=== PATIENT | male | born 1965 | race African-American/Black ===

== ENCOUNTER 2017-02-11 09:41 | Inpatient (IN) | payer SELFPAY ==
[~2017-02-11 09:41] MED LIST: Ondansetron HCl/PF 4 MG/2 ML Vial IVP PRN; Ondansetron ODT 4 MG TAB SL PRN
[2017-02-11] MEDS ORDERED: niCARdipine 20MG In NaCl 20 MG/200 ML BAG ONE (09:58)
[2017-02-11 10:57] LABS: Troponin I 0.032 ng/mL (< 0.028)
[2017-02-11] MEDS ORDERED: niCARdipine HCl 25 MG in Sodium Chloride 0.9% 250 ML 240 ML IVPB SCH (11:30)
[2017-02-11] MEDS ORDERED: Ondansetron ODT 4 MG TAB PO PRN (11:32)
[2017-02-11] MEDS ORDERED: Acetaminophen 325 MG TAB PO PRN (11:32)
[2017-02-11] MEDS ORDERED: Aspirin 325 MG TAB PO SCH (11:45)
[2017-02-11] MEDS ORDERED: Furosemide 40 MG/4 ML VIAL SLOW IVP SCH (11:45)
[2017-02-11] MEDS: Nicotine 21 MG PATCH TD SCH (12:13)
[2017-02-11 13:23] LABS: Hemoglobin A1c 5.9 % (4.0-6.0)
[2017-02-11 13:45] LABS: Troponin I 0.029 ng/mL (< 0.028)
--- NOTE | 2017-02-11 14:46 | HP ---
DATE OF ADMISSION: 02/11/2017 HISTORY OF PRESENT ILLNESS: This is attending history and physical for patient Ann Price. For full history and physical, please see Dr. Conner Lee's dictated H\T\P. I have seen and examined th e patient and portions of the history and physical have been repeated by myself. I have discussed t he case as well as the plan for this patient and I am in agreement with his note. In brief, this patient is a 51-year-old gentleman with a history of poorly controlled hypertension a s well as hyperlipidemia, who presents to the emergency room with 1-month history of worsening dyspn ea on exertion as well as the rest as well as worsening 3-pillow orthopnea as well as paroxysmal noc turnal dyspnea. The patient reports that he noticed dyspnea on exertion and at rest approximately 1 month ago and is continue to get worse. It showed the patient also endorses worsening nocturia thr oughout the night. He also reports that his blood pressures have been running higher than normal ov er the last few months. Today, the patient reported that his symptoms became acutely worse, which l et him to presentation to the outside ER. On presentation, his blood pressures were noted to be gre ater than 200/110. The patient was started on nitro drip as well as given nitro paste and was trans ferred to [facility] for a higher level of care. Upon arrival to the emergen cy room here, the patient's blood pressures continue to be in the low 200-110s. The patient denied any chest pain, vision changes, or headache. However, he does endorse occasional lower extremity ed neetu as well as dry cough. As above, he does mention profound shortness of breath over the last melissa h that is getting worse. After arrival to this institution, the patient was placed on a Cardene dri p with some improvement in his blood pressures. Has significant medical history of hypertension and hyperlipidemia. PHYSICAL EXAMINATION: VITAL SIGNS: At the time of my examination showed a temperature of 97.7, pulse 76, blood pressure 1 84/118, respirations 18, and oxygen saturation 98% on room air. GENERAL: The patient is alert and oriented x4 in no significant distress. He was resting comfortab ly in his bed, though he was sitting up in order to breathe more comfortably. CARDIOVASCULAR: Revealed a regular rate and rhythm; however, the patient was noted to have an S4 ga llop and a displaced PMI. Distal pulses were symmetrical. ABDOMEN: Soft and nontender to palpation. LUNGS:. Lung exam revealed mild rales in the bases bilaterally. EXTREMITIES: Lower extremity exam showed trace to 1+ pitting edema in the lower extremities to mid- hernandez level. SIGNIFICANT LABORATORY DATA: Showed an overall normal CBC and BMP. The patient was noted to have a BNP of 304 and a troponin from the outside ER of 0.032. EKG and chest x-ray were not available at the time of my examination. ASSESSMENT AND PLAN: This 51-year-old gentleman with elevated blood pressures and progressively wor sening dyspnea as well as orthopnea and PND concerning for new onset heart failure. 1. Likely hypertensive emergency -- this patient is presenting with highly elevated blood pressures in association with likely new onset heart failure as well as evidence of heart dysfunction as evid enced by his worsening shortness of breath and nighttime symptoms. The patient has been started on a Cardene drip in the emergency room and I will be continued. The patient will be admitted to the [facility] as long as he is on a Cardene drip and we will titrate the drip to maintain systolic blood pressu re less than 160. Our goal was to decrease the amount in this patient by approximately 10-20% and t hen gradually bring his blood pressure down by resuming all medications and titrating as necessary. We will continue to trend troponins as well as repeat serial EKGs to ensure that there is no eviden ce of ischemia. Repeat chest x-ray at this time as it does appear that the patient has evidence of volume overload in which case, we will give him IV Lasix for treatment of that. Strict I's and O's. Cardiology has been consulted on this patient. We will also obtain an echo to see what sort of ca rdiac dysfunction the patient is currently having in light of his symptoms. 2. Likely new onset heart failure. As above, this is likely secondary to poorly controlled hyperte nsion as well as current hypertensive emergency. The patient admitted to the ICU. We will obtain e chocardiogram as well as administer Lasix as needed for volume overload. Cardiology has been consul juvencio. The patient is on RANDI inhibitor as well as beta carla in the outpatient setting that will ne ed to be continued as well as titrated up as available and the patient will likely need to be starte d on statin as well as aspirin. Await further cardiology recommendations. 3. Tobacco abuse. The patient will be counseled on detrimental effect of tobacco abuse on his skilled nursing cardiac health.
--- NOTE | 2017-02-11 15:07 | CON ---
DATE OF CONSULTATION: 02/11/2017 REASON FOR CONSULTATION: Hypertensive emergency. HISTORY OF PRESENT ILLNESS: Mr. Price is a 51-year-old -[place] gentleman that comes to the hospital for shortness of breath and high blood pressure. He has slowly been getting more short -winded on the last few weeks and his blood pressure was really out of control, which has been tryin g to good control with by his primary care physician. He eventually got to the point where he felt he can breathe anymore, so he came in for evaluation to the [place] ER. He was found to have real ly elevated blood pressure in the 190-200s/100s so he was transferred over to the [facility] in [place] where he had to be placed on BiPAP briefly. He was placed on nicardipine drip and his blood pressure went down, he feels much better now. He denies any chest pain, tightness, pressure. No sh ortness of breath, no lightheadedness, no syncope or presyncope. He has had the high blood pressure for sometime now and is really not well controlled at home, he tells me it checks it all the time a nd it is in the 150s-160s/90s-110s. PAST MEDICAL HISTORY: 1. Hypertension. 2. Hyperlipidemia. 3. Alcohol use. 4. Tobacco use. SOCIAL HISTORY: He smokes 2 packs a day and he drinks alcohol. PAST SURGICAL HISTORY: Hernia repair. OUTPATIENT MEDICATIONS: Include, 1. Lisinopril 20 mg a day. 2. Metoprolol 50 mg twice a day. 3. Lasix 40 mg a day. 4. Albuterol inhaler. 5. Clonidine 0.1 mg p.r.n. for blood pressure above 170. ALLERGIES: No known drug allergies. FAMILY HISTORY: Noncontributory. REVIEW OF SYSTEMS: A 12-point review of systems was done and is all negative unless stated in the h istory of present illness. PHYSICAL EXAMINATION: VITAL SIGNS: Temperature 98.2, pulse 77, respiration rate 20, satting 99% on 2 liters, blood pressu re 131/80. GENERAL: Awake, alert, oriented x3, in no distress. HEENT: Normocephalic, atraumatic. NECK: Supple, no JVD. LUNGS: Clear. CARDIOVASCULAR: S1, S2, no S3 or S4, no murmurs or rubs. ABDOMEN: Soft, positive bowel sounds. EXTREMITIES: No edema. SKIN: Warm and dry. LABORATORY WORK: Reviewed. Hemoglobin A1c is 5.9, troponin is 0.3 and 0.02. TSH was normal. CK-M B was normal. At the outside facility is sodium was 140, potassium is 4.2, chloride of 106, CO2 of 25, gap of 13, glucose of 121, BUN of 17, creatinine was 0.9, calcium of 8.9. Total bilirubin 0.2. Alkaline phosp hatase, AST and ALT are normal. Total protein of 6.4 and albumin of 3.6. Troponin I was 0.03. BNP was 300. White count is 5, hemoglobin of 12, hematocrit of 40, platelets of 175, blood pressure wa s 194/108 and 186/110. EKG showed normal sinus rhythm with LVH and early repolarization abnormalities. ASSESSMENT AND PLAN: 1. Hypertensive emergency: Improved symptoms with reduction in blood pressure. He is doing much b gaurav. We will plan on doing an echocardiogram to assess his LV function and cardiac structures. D epending on this, we will decide on what other therapies we need to institute for better blood press ure control. 2. Mildly elevated troponins: Most likely related to his blood pressure and demand ischemia. Furt her recommendations depending on what his LV function may be. 3. Tobacco use: Counseled on sedation. 4. Alcohol abuse: Counseled on sedation. Thank you for letting us participate in the care of your patient. We will follow.
[2017-02-11] MEDS: Heparin 5,000 UNITS/ML VIAL SC SCH ×2 (15:38→22:04)
--- NOTE | 2017-02-11 16:15 | RAD ---
FRONTAL VIEW CHEST: 02/11/17 INDICATION: Short of breath. FINDINGS: There is enlargement of the cardiac silhouette. Mild prominence of the pulmonary vasculature. No ev idence of consolidation, effusion, or discrete pneumothorax. IMPRESSION: No focal consolidation. POS: ELDON
[2017-02-11 16:31] LABS: Troponin I 0.026 ng/mL (< 0.028)
[2017-02-11] MEDS ORDERED: hydrALAZINE 20 MG/ML VIAL SLOW IVP PRN (18:48)
[2017-02-11] MEDS ORDERED: FLU VACC QS2017-18 36 mo. & older 0.5 ML SYRINGE IM ONE (21:00)
[2017-02-11] MEDS: Atorvastatin Calcium 40 MG TAB PO SCH (22:04)
--- NOTE | 2017-02-11 23:26 | HP-2 ---
RESIDENT: Bon Lee M.D. ATTENDING PHYSICIAN: Ki Jordan M.D. PRIMARY CARE PHYSICIAN: Dr. Rosenbaum in [place]. CODE STATUS: DNI. CHIEF COMPLAINT: Shortness of breath. HISTORY OF PRESENT ILLNESS: A 51-year-old male with past medical history of hypertension and hyperlipidemia, who presents for evaluation of worsening shortness of breath. Shortness of breath initially started 1 month ago associated with dry cough, paroxysmal nocturnal dyspnea, and orthopnea. The patient states the episode is intermittent and worse at night associated with the above symptoms. Patient states that the shortness of breath became significantly worse, causing him to come to the ER for further evaluation today. The patient reportedly uses as needed clonidine, metoprolol, lisinopril , and Lasix for blood pressure control. The patient has been out of Lasix for the past few months, however. The patient without any history of heart failure. The patient states he uses his clonidine approximately two times a month when his blood pressure is greater than 180 systolic. The patient states he normally runs in the 170/100s. Besides his shortness of breath, denies any vision changes, headaches, chest pain, unilateral weakness, or syncope. The patient does state that his legs will swell at times and they are a bit swollen today. Otherwise, no complaints. The patient has never seen a licensed loan officer assistant. The patient is not on a statin medication. ER: The patient received nitro drip on route from [place] [facility]. Reportedly, patient with blood pressure in 200s/100s on the nitro drip when he got here, and he was converted over to a Cardene drip. PAST MEDICAL HISTORY: 1. Hypertension. 2. Hyperlipidemia. 3. Tobacco use. 4. Alcohol use. PAST SURGICAL HISTORY: Inguinal hernia repair as a child. ALLERGIES: No known drug allergies. MEDICATIONS: 1. Clonidine 0.1 mg p.r.n. for systolic blood pressure greater than 180. 2. Metoprolol, unknown dosage b.i.d. 3. Lisinopril 40 mg p.o. daily. 4. Lasix 40 mg p.o. daily. FAMILY HISTORY: 1. Diabetes mellitus. 2. Hypertension. SOCIAL HISTORY: The patient endorses a 2-pack per day smoking history since the age of 13, giving him a 14-roho-ilms smoking history. The patient also drinks 1 pint of whiskey every night. Denies any illicit drug use. REVIEW OF SYSTEMS: GENERAL: Denies any fever or chills. EYES: Denies any vision change or eye pain. ENT: Denies any nasal congestion or sore throat. RESPIRATORY: Endorses dry cough, shortness of breath. See HPI. CARDIOVASCULAR : Denies any chest pain. Endorses edema. GASTROINTESTINAL: Denies any nausea , vomiting, diarrhea, or constipation. GENITOURINARY: Denies any dysuria and endorses nocturia. SKIN: Denies any rashes or lesions. MUSCULOSKELETAL: Denies any pain. NEUROLOGIC: Denies any weakness, syncope. PSYCHIATRIC: Denies anxiety or depression. PHYSICAL EXAMINATION: VITAL SIGNS: Blood pressure 184/118, pulse 76, respiratory rate 18, T-max 97.7 degrees Fahrenheit, pulse ox 98% on room air, weight 117.9 kilograms. GENERAL: A\T\O x3. NAD. Obese, appropriately interactive. HEENT: PERRLA, EOMI. Conjunctivae within normal limits. ENT: Nasal mucosa and oropharynx within normal limits. NECK: Supple, no cervical adenopathy, no thyromegaly, no bruits. CARDIOVASCULAR: Regular rate and rhythm, no murmur. Patient had S4 gallop. 2 + radial pulses bilaterally. RESPIRATORY: Normal respiratory effort, no retractions. Crackles in the base bilaterally. SKIN: Warm, dry, and intact. No cyanosis or lesions. ABDOMEN: Soft and nontender to palpation. Bowel sounds x4. No masses or distention. EXTREMITIES: No clubbing, no cyanosis. The patient has trace edema in the lower extremities bilaterally. MUSCULOSKELETAL: Structure within normal limits. Tone within normal limits. 5 /5 strength, full range of motion. NEUROLOGICAL: No focal deficits. Sensation within normal limits. Cranial nerves II through XII intact bilaterally. PSYCHIATRIC: Appropriate mood and affect. LABORATORY DATA AND IMAGIN. White blood cell count 5.3, hematocrit 40.0, platelets 175. Sodium 140, potassium 4.2, chloride 106, bicarbonate 25, BUN 17.5, creatinine 0.9, glucose 121, albumin 3.6, total protein 6.4, total bilirubin 0.2, calcium 8.9, AST 18, ALT 25, alkaline phosphatase 68. 2. Cardiac enzymes, troponin I is 0.037, BNP 304. 3. EKG showing possibly slight elevations in the ST segments of V1 through V3 with slight up-sloping; however, this is a scanned copy from EKG from [place] and repeat EKG unavailable at time of this dictation. 4. Chest x-ray unavailable at time of dictation, but per ER physician, pulmonary vascular congestion, repeat pending. ASSESSMENT AND PLAN: A 51-year-old male with: 1. Likely hypertensive emergency. - We will admit to the ICU and place on Cardene drip with a goal to drop his mean arterial pressure by 10% to 20% in the first hour; this should be between 126 to 112 with an initial mean arterial pressure of 140 and no lower than 105 in the first 24 hours.- - We will continue to trend troponins. We will place CK-MB orders as well and EKG along with this. - Echocardiogram, encouraged consult for likely new onset of heart failure as well. We will give patient aspirin and place on high intensity statin. - We will repeat chest x-ray and give one time dose of IV Lasix as patient does have crackles in lungs and trace edema in the lower extremities. - We will have strict daily weights as well as strict I's and O's to monitor fluid status. - We will check a.m. fasting lipid panel, TSH, and A1c and hold home blood pressure medications along Cardene drip. 2. Hyperlipidemia. - We will check an a.m. fasting lipid panel. - We will go ahead and place patient on high intensity statin as he is at high risk for CAD disease. 3. Alcohol abuse. - We will place patient on ASE protocol and evaluate for signs of withdrawal. 4. Tobacco abuse. - We will place the patient on Nicoderm patch and give counseling. DISPOSITION AND LENGTH OF HOSPITAL STAY: Greater than 2 midnights. Symptomatic medications will be provided. History and physical exam as well as management were discussed with Dr. Jordan. ALON
--- NOTE | 2017-02-12 00:35 | CON ---
DATE OF CONSULTATION: 02/11/2017 HISTORY OF PRESENT ILLNESS: Ann Price is a 51-year-old gentleman who was admit juvencio to the hospital with uncontrolled blood pressure. He said he quit taking his medications. His doctor has . He is supposed to be taking metoprolol, lisinopril, and Lasix 10 a day. In the ER, his blood pressure was markedly elevated. He has since received Cardene to which his blo od pressure has been decreased. He is seen by Cardiology. He is due for his stress test tomorrow. He has been smoking 2 packs a day. He also been complaining of difficult breathing. He denies a pr ior history of TB, pneumonia or bronchial asthma. 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 PREVIOUS SURGERIES: Hernia operation. REVIEW OF SYSTEMS: Otherwise negative. PHYSICAL EXAMINATION: GENERAL: Appears to be in no distress. VITAL SIGNS: Blood pressure has stabilized 138/95, sats are 96%, pulse 65, respiratory rate 18. CHEST: Decreased breath sounds without any wheezing. CARDIAC: Normal S1, S2. ABDOMEN: Soft, no masses. IMPRESSION: 1. Uncontrolled hypertension, poor noncompliance. 2. Dyspnea, rule out cardiac component. 3. Tobacco abuse; he was told to refrain from smoking. 4. Heavy alcohol abuse, told to refrain from drinking. PLAN: I agree with present care. We will follow while in the ICU.
[2017-02-12 05:21] LABS: #Eosinphils 0.2 thou/uL (0.0-0.7); #Lymphocytes 1.8 thou/uL (1.20-3.40); #Monocytes 0.4 thou/uL (0.11-0.59); #Neutrophils 2.8 thou/uL (1.40-6.50); %Basophils 0.5 % (0.0-1.0); %Eosinophils 3.8 % (0.0-10.0); %Monocytes 7.2 % (0.0-10.0); Hematocrit 46.4 % (42.0-52.0); Mean Platelet Volume 8.9 fL (7.4-10.4); White Blood Cell (WBC) Count 5.3 thou/uL (4.8-10.8)
[2017-02-12 05:42] LABS: Anion Gap 9 mmol/L (10-20); BUN (Urea Nitrogen) 17 mg/dL (8.4-25.7); Calc. Creatinine Clearance 131 mL/min (70-130); Calcium 9.8 mg/dL (7.8-10.44); Carbon Dioxide 29 mmol/L (22-29); Chloride 99 mmol/L (98-107); Cholesterol 314 mg/dl (< 200 Desired); Estimated GFR-MDRD Greater than 90; LDL Cholesterol, Calculated 214 mg/dL
--- NOTE | 2017-02-12 07:24 | PDOC.FM ---
- Subjective Subjective: Patient states he is feeling better. Breathing easy. He is thankful for his care. He denies SOB, chest pain, headache. Patient not taking a statin at home, never has. Notes that he takes daily lasix 10 mg but cramps a lot in his legs. Not taking potassium daily. - Objective Vital Signs & Weight: Vital Signs (12 hours) Temp Pulse Resp Pulse Ox 02/12/17 04:00 98.2 F 02/12/17 00:00 98.1 F 02/11/17 20:00 98.1 F 75 16 96 Most Recent Monitor Data Heart Rate from ECG 66 NIBP 169/112 NIBP BP-Mean 127 Respiration from ECG 15 SpO2 95 I&O: 02/11/17 02/12/17 02/13/17 06:59 06:59 06:59 Intake Total 1534 Output Total 3800 Balance -2266 Result Diagrams: 02/12/17 04:22 02/12/17 04:22 <Samantha Zapata - Last Filed: 02/12/17 08:00> - Objective Vital Signs & Weight: Vital Signs (12 hours) Temp Pulse Resp BP Pulse Ox 02/12/17 08:34 75 153/86 H 02/12/17 08:33 153/86 H 02/12/17 08:00 97.8 F 75 17 96 02/12/17 07:58 96 02/12/17 04:00 98.2 F 02/12/17 00:00 98.1 F Weight Weight 221 lb 12.56 oz Most Recent Monitor Data Heart Rate from ECG 72 NIBP 164/120 NIBP BP-Mean 136 Respiration from ECG 14 SpO2 89 I&O: 02/11/17 02/12/17 02/13/17 06:59 06:59 06:59 Intake Total 1534 Output Total 3800 250 Balance -2266 -250 Result Diagrams: 02/12/17 04:22 02/12/17 04:22 <Abdelrahman Saha - Last Filed: 02/12/17 10:27> Phys Exam - Physical Examination Constitutional: NAD Respiratory: no wheezing, no rales, no rhonchi, clear to auscultation bilateral Cardiovascular: RRR, no significant murmur Gastrointestinal: soft, non-tender, positive bowel sounds Musculoskeletal: no edema Neurological: non-focal, normal sensation, moves all 4 limbs Psychiatric: normal affect, A&O x 3 <Samantha Zapata - Last Filed: 02/12/17 08:00> Dx/Plan (1) Hypertensive emergency Code(s): I16.1 - HYPERTENSIVE EMERGENCY Status: Resolved (2) Hyperlipidemia Code(s): E78.5 - HYPERLIPIDEMIA, UNSPECIFIED Status: Acute (3) Tobacco abuse Code(s): Z72.0 - TOBACCO USE Status: Acute (4) Alcohol abuse Code(s): F10.10 - ALCOHOL ABUSE, UNCOMPLICATED Status: Acute - Plan Plan: 1. hypertensive emergency with suspected new onset heart failure- Patient with admission BPs of 181/108. Originally placed on cardene drip and stopped at 1848. He was at a map of 87 this morning. Overnight MAPs in low 100's. Plan to give lisinopril, amlodipine. After stress will get metoprolol. Awaiting results of ECHO and planning for nuclear medicine stress test this AM. Likely can transition to the floor this afternoon and cont to monitor BPs 24 hours. 2. Hyperlipidemia started on high intensity statin and educated on SEs. Follow up with PCP. 3. tobacco abuse- cessation counseling. nicoderm given. 4. alcohol abuse- counseling provided to stop use, ASA protocol. Has been doing ok. <Samantha Zapata - Last Filed: 02/12/17 08:00> Attending Addendum - Attending Addendum I personally evaluated the patient and discussed the management with Dr. Zapata I agree with the History, Examination, Assessment and Plan documented above with any addition or exceptions noted below. Patient admitted for hypertensive urgency and CHF. He has been non-compliant with meds at home, but I doubt that his BP has been controlled. He does have LVH on EKG. He was not on HCTZ or a calcium channel carla. He is a heavy smoker and would be at risk for renal vascular disease. We are starting Amlodipine and HCTZ to go along with Metoprolol and Lisinopril. He needs the last two for CHF. He can move to the floor today <Abdelrahman Saha - Last Filed: 02/12/17 10:27>
[2017-02-12] MEDS: Aspirin 81 mg Enteric Coated Tablet PO SCH (08:32)
[2017-02-12] MEDS: Heparin 5,000 UNITS/ML VIAL SC SCH ×3 (08:33→22:02)
[2017-02-12] MEDS: Lisinopril 20 MG TAB PO SCH (08:33)
[2017-02-12] MEDS: Amlodipine 10 MG TAB PO SCH (08:34)
[2017-02-12] MEDS ORDERED: Furosemide 20 MG TAB PO SCH (09:00)
[2017-02-12] MEDS ORDERED: Lorazepam 0.5 MG TAB PO PRN (11:03)
--- NOTE | 2017-02-12 11:53 | PDOC.CTH ---
Cardiology Progress Note - Subjective He is doing well. He denies any chest pain, tightness, pressure. - Objective Vital Signs Temp Pulse Resp BP Pulse Ox 02/12/17 08:34 75 153/86 H 02/12/17 08:33 153/86 H 02/12/17 08:00 97.8 F 75 17 96 02/12/17 07:58 96 02/12/17 04:00 98.2 F 02/12/17 00:00 98.1 F Weight 221 lb 12.56 oz 02/11/17 02/12/17 02/13/17 06:59 06:59 06:59 Intake Total 1534 Output Total 3800 250 Balance -2266 -250 - Physical Examination General/Neuro: alert & oriented x3, NAD Neck: no JVD present Lungs: unlabored respirations Heart: RRR Abdomen: NT/ND Extremities: other: (no edema) - Telemetry Telemetry Rhythm: NSR - Labs Result Diagrams: 02/12/17 04:22 02/12/17 04:22 Troponin/CKMB CK-MB (CK-2) 3.3 ng/mL (0-6.6) 02/11/17 15:53 Troponin I 0.026 ng/mL (< 0.028) 02/11/17 15:53 - Assessment/Plan 1. Hypertensive emergency 2. Indeterminate troponins. 3. Alcohol abuse 4. Tobacco abuse. PLAN: - Lexiscan stress today. - Will add coreg to regimen today. - BP better controlled but he will need a PRN hydralazine to take home once discharged. - May transfer to telemetry.
--- NOTE | 2017-02-12 12:52 | PRG ---
DATE OF SERVICE: 02/12/2017 SUBJECTIVE: This morning, awake, alert, responsive. Denies pain or shortness of breath. OBJECTIVE: VITAL SIGNS: Blood pressure is 153/86, pulse 75, respiratory rate 18. CHEST: Decreased breath sounds, no wheezing. CARDIAC: Normal S1, S2. No gallops. ABDOMEN: Soft, no masses. LABORATORY DATA: White count 5000, H\T\H 14 and 46, platelet count is normal. Sodium 133. ASSESSMENT: Hypertensive urgency with poor compliance to medication and elevated troponin. He is scheduled for a stress test today. Disposition as per Cardiology. We will follow while in e ICU.
[2017-02-12] MEDS: Nicotine 21 MG PATCH TD SCH (14:14)
--- NOTE | 2017-02-12 14:48 | NM ---
NUCLEAR MEDICINE CARDIAC STRESS TEST WITH EJECTION FRACTION: HISTORY: Shortness of breath, hypertension, dyslipidemia, smoker. COMPARISON: None. TECHNIQUE: Nuclear medicine cardiac stress test was performed after the intravenous administration of 28.5 and 10.4 mCi Technetium 99m sestamibi for stress and rest, respectively. Exam was performed using a LexiScan protocol. FINDINGS: Mild inferior wall scarring. Ejection fraction is abnormal at 29%. Global hypokinesis. IMPRESSION: Small volume inferior wall scar with global hypokinesis and abnormally low ejection fraction of 29%. POS: LIANNE
[2017-02-12] MEDS ORDERED: Regadenoson 0.4 MG/5 ML SYRINGE ONE (15:53)
[2017-02-12] MEDS: Carvedilol 6.25 MG TAB PO SCH (16:42)
[2017-02-12] MEDS: Atorvastatin Calcium 40 MG TAB PO SCH (22:01)
[2017-02-13 05:22] LABS: Anion Gap 13 mmol/L (10-20); BUN (Urea Nitrogen) 16 mg/dL (8.4-25.7); Calc. Creatinine Clearance 124 mL/min (70-130); Calcium 9.2 mg/dL (7.8-10.44); Carbon Dioxide 25 mmol/L (22-29); Chloride 101 mmol/L (98-107); Estimated GFR-MDRD Greater than 90
--- NOTE | 2017-02-13 07:34 | PDOC.FM ---
- Subjective Subjective: Patient feels a little "short winded" this morning. He last drank coffee around 4-5 AM. Denies headaches, chest pain, weakness, numbness. Does c/o nosebleeds when BP is high. - Objective MAR Reviewed: Yes Vital Signs & Weight: Vital Signs (12 hours) Temp Pulse Resp BP Pulse Ox 02/13/17 04:33 98.0 F 80 18 170/93 H 95 02/13/17 03:51 97 02/13/17 00:17 98.7 F 66 18 159/81 H 97 02/12/17 21:57 98.3 F 76 18 174/96 H 93 L 02/12/17 20:11 98.3 F 76 18 93 L Weight Weight 100.6 kg Most Recent Monitor Data Heart Rate from ECG 72 NIBP 164/120 NIBP BP-Mean 136 Respiration from ECG 14 SpO2 89 I&O: 02/12/17 02/13/17 02/14/17 06:59 06:59 06:59 Intake Total 1534 480 Output Total 3800 1750 Balance -2265 -1763 Result Diagrams: 02/12/17 04:22 02/13/17 04:23 EKG Reviewed by me: Yes <Samantha Zapata - Last Filed: 02/13/17 08:29> - Objective Vital Signs & Weight: Vital Signs (12 hours) Temp Pulse Resp BP BP Pulse Ox 02/13/17 07:40 97.7 F 85 18 187/114 H 96 02/13/17 04:33 98.0 F 80 18 170/93 H 95 02/13/17 03:51 97 02/13/17 00:17 98.7 F 66 18 159/81 H 97 02/12/17 21:57 98.3 F 76 18 174/96 H 93 L Weight Weight 221 lb 12.56 oz Most Recent Monitor Data Heart Rate from ECG 72 NIBP 164/120 NIBP BP-Mean 136 Respiration from ECG 14 SpO2 89 I&O: 02/12/17 02/13/17 02/14/17 06:59 06:59 06:59 Intake Total 1534 480 Output Total 3800 1750 Balance -2266 -1270 Result Diagrams: 02/12/17 04:22 02/13/17 04:23 <Abdelrahman Saha - Last Filed: 02/13/17 09:59> Phys Exam - Physical Examination Constitutional: NAD HEENT: PERRLA Respiratory: no wheezing, no rales, no rhonchi, clear to auscultation bilateral Cardiovascular: RRR, no significant murmur Gastrointestinal: soft, non-tender Musculoskeletal: no edema Neurological: non-focal, normal sensation, moves all 4 limbs Psychiatric: normal affect <Samantha Zapata - Last Filed: 02/13/17 08:29> Dx/Plan (1) Hypertensive emergency Code(s): I16.1 - HYPERTENSIVE EMERGENCY Status: Resolved (2) Hyperlipidemia Code(s): E78.5 - HYPERLIPIDEMIA, UNSPECIFIED Status: Acute (3) Tobacco abuse Code(s): Z72.0 - TOBACCO USE Status: Acute (4) Alcohol abuse Code(s): F10.10 - ALCOHOL ABUSE, UNCOMPLICATED Status: Acute - Plan Plan: 1. hypertensive emergency- BPs not well controlled. Cont to monitor. HCTZ not given yesterday, start BID today. Now on 4 agents. Cardiology following. 2. Congestive heart failure with reduced ejection fraction- Suspect possible cardiac cath today. Questionable candidate for lifevest. consult placed for heart failure clinic. 3. hyperlipidemia- High intensity statin initiated this hospitalization. 4. Tobacco abuse- extensive counseling provided. He wants to quit. Thinking about vaping or patches. Advised to follow up outpatient with PCP. 5. alcohol abuse- cessation counseling provided. Patient states there are times he would not take his BP meds at night bc he was drinking. 6. medication noncompliance Normal Hgb A1C. <Samantha Zapata - Last Filed: 02/13/17 08:29> Attending Addendum - Attending Addendum I personally evaluated the patient and discussed the management with Dr. Zapata I agree with the History, Examination, Assessment and Plan documented above with any addition or exceptions noted below. Mr. Price had a nuclear stress test yesterday which showed a 29% EF and wall motion abnormalities. Cardiology has changed him to carvedilol. His BP is now much better controlled. We are waiting to hear whether cards wants to cath him or not. He will need to stop smoking control his lipids and have close followup for his BP and heart. <Abdelrahman Saha - Last Filed: 02/13/17 09:59>
[2017-02-13] MEDS: Amlodipine 10 MG TAB PO SCH (08:21)
[2017-02-13] MEDS: Aspirin 81 mg Enteric Coated Tablet PO SCH (08:21)
[2017-02-13] MEDS: Hydrochlorothiazide 25 MG TAB PO SCH (08:21)
[2017-02-13] MEDS: Carvedilol 6.25 MG TAB PO SCH ×2 (08:21→15:57)
[2017-02-13] MEDS: Lisinopril 20 MG TAB PO SCH (08:21)
[2017-02-13] MEDS: Heparin 5,000 UNITS/ML VIAL SC SCH ×3 (08:26→20:55)
[2017-02-13] MEDS: Nicotine 21 MG PATCH TD SCH (12:57)
--- NOTE | 2017-02-13 18:03 | PDOC.CTH ---
Cardiology Progress Note - Subjective He is doing better. No chest pain. - Objective Vital Signs Temp Pulse Resp BP BP Pulse Ox 02/13/17 15:25 97.9 F 79 18 150/92 H 95 02/13/17 08:00 97.7 F 85 18 96 02/13/17 07:40 97.7 F 85 18 187/114 H 96 Weight 221 lb 12.56 oz 02/12/17 02/13/17 02/14/17 06:59 06:59 06:59 Intake Total 1534 480 Output Total 3800 1750 Balance -2266 -1270 - Physical Examination General/Neuro: alert & oriented x3, NAD Neck: no JVD present Lungs: CTA, unlabored respirations Heart: RRR Abdomen: NT/ND Extremities: other: (no edema) - Telemetry Telemetry Rhythm: NSR - Labs Result Diagrams: 02/12/17 04:22 02/13/17 04:23 Troponin/CKMB CK-MB (CK-2) 3.3 ng/mL (0-6.6) 02/11/17 15:53 Troponin I 0.026 ng/mL (< 0.028) 02/11/17 15:53 - Assessment/Plan 1. Hypertensive emergency 2. Indeterminate troponins. 3. Alcohol abuse 4. Tobacco abuse. 5. Abnormal MPI 6. Systolic dysfunction. PLAN: - EF at 25% on MPI. - Continue BB and ACEI. - Will plan on further risk stratification with a C. We spoke about risks and benefits of procedure and he agrees to proceed. - Will need lifevest before discharge if LV function remains reduced on LV gram.
[2017-02-13] MEDS ORDERED: Communication Order-Pharmacy FS SCH (18:15)
[2017-02-13] MEDS: hydrALAZINE 25 MG TAB PO SCH (20:55)
[2017-02-13] MEDS: Atorvastatin Calcium 40 MG TAB PO SCH (20:56)
--- NOTE | 2017-02-14 06:05 | PDOC.FM ---
- Subjective Subjective: Patient doing well with no complaints this morning. He denies chest pain and shortness of breath. No adverse events overnight. - Objective MAR Reviewed: Yes Vital Signs & Weight: Vital Signs (12 hours) Temp Pulse Resp BP BP BP Pulse Ox 02/14/17 04:00 97.6 F 78 18 160/90 H 99 02/14/17 00:00 98.2 F 72 18 157/83 H 94 L 02/13/17 20:55 70 172/94 H 02/13/17 20:03 97.6 F 82 18 150/92 H 97 02/13/17 19:45 98.2 F 72 18 160/87 H 94 L Weight Weight 100.6 kg Most Recent Monitor Data Heart Rate from ECG 72 NIBP 164/120 NIBP BP-Mean 136 Respiration from ECG 14 SpO2 89 I&O: 02/12/17 02/13/17 02/14/17 06:59 06:59 06:59 Intake Total 1534 480 720 Output Total 3800 1750 2000 Balance -7051 -7140 -1978 Result Diagrams: 02/12/17 04:22 02/14/17 05:33 <Carmen Alanis - Last Filed: 02/14/17 06:44> - Objective Vital Signs & Weight: Vital Signs (12 hours) Temp Pulse Resp BP BP Pulse Ox 02/14/17 07:33 97.5 F L 65 18 137/99 H 94 L 02/14/17 06:16 78 160/90 H 02/14/17 06:15 78 160/90 H 02/14/17 04:00 97.6 F 78 18 160/90 H 99 02/14/17 00:00 98.2 F 72 18 157/83 H 94 L Weight Weight 100.6 kg Most Recent Monitor Data Heart Rate from ECG 72 NIBP 164/120 NIBP BP-Mean 136 Respiration from ECG 14 SpO2 89 I&O: 02/13/17 02/14/17 02/15/17 06:59 06:59 06:59 Intake Total 480 1180 Output Total 1750 2700 Balance -5900 -3554 Result Diagrams: 02/12/17 04:22 02/14/17 05:33 <Steffen Chilel - Last Filed: 02/14/17 10:47> Phys Exam - Physical Examination Constitutional: NAD Respiratory: clear to auscultation bilateral Cardiovascular: RRR, no significant murmur, no rub Gastrointestinal: soft, no distention Musculoskeletal: no edema Neurological: non-focal Psychiatric: normal affect, A&O x 3 Skin: normal turgor (dry) <Carmen Alanis - Last Filed: 02/14/17 06:44> Dx/Plan (1) Coronary artery disease Code(s): I25.10 - ATHSCL HEART DISEASE OF [place] CORONARY ARTERY W/O ANG PCTRS Status: Acute (2) Systolic CHF Code(s): I50.20 - UNSPECIFIED SYSTOLIC (CONGESTIVE) HEART FAILURE Status: Chronic Plan: EF 29%. (3) Hypertensive emergency Code(s): I16.1 - HYPERTENSIVE EMERGENCY Status: Resolved (4) Hyperlipidemia Code(s): E78.5 - HYPERLIPIDEMIA, UNSPECIFIED Status: Chronic (5) Tobacco abuse Code(s): Z72.0 - TOBACCO USE Status: Chronic (6) Alcohol abuse Code(s): F10.10 - ALCOHOL ABUSE, UNCOMPLICATED Status: Acute - Plan Plan: 1. Coronary Artery Disease - NM stress showed small volume inferior wall scar with global hypokinesis and EF of 29%. - Cards plans to cath pt today. - Continue Coreg, ASA, Atorvastatin. 2. Heart failure with reduced EF. - HF clinic has been consulted, and pt will need to follow-up with them outpatient. - Continue fluid restriction, daily weights, strict I/O - Continue Coreg, lisinopril - Life vest may be needed prior to dc if LV function remains reduced on LV gram , per cards 3. Hypertension - Hypertensive emergency has resolved. - BPs have been improving. - Continue coreg, amlodipine, HCTZ, and Lisinopril. 4. Tobacco abuse - education has been provided - Nicoderm TD. <Carmen Alanis - Last Filed: 02/14/17 06:44> Attending Addendum - Attending Addendum I personally evaluated the patient and discussed the management with Dr. Alanis. I agree with the History, Examination, Assessment and Plan documented above with any addition or exceptions noted below. <Steffen Chilel - Last Filed: 02/14/17 10:47>
[2017-02-14] MEDS: Amlodipine 10 MG TAB PO SCH (06:15)
[2017-02-14] MEDS: Carvedilol 6.25 MG TAB PO SCH ×2 (06:15→15:51)
[2017-02-14] MEDS: hydrALAZINE 25 MG TAB PO SCH ×3 (06:16→22:04)
[2017-02-14] MEDS: Aspirin 81 mg Enteric Coated Tablet PO SCH (06:16)
[2017-02-14] MEDS: Lisinopril 20 MG TAB PO SCH (06:16)
[2017-02-14 06:33] LABS: Anion Gap 8 mmol/L (10-20); BUN (Urea Nitrogen) 19 mg/dL (8.4-25.7); Calc. Creatinine Clearance 117 mL/min (70-130); Calcium 9.5 mg/dL (7.8-10.44); Carbon Dioxide 32 mmol/L (22-29); Chloride 102 mmol/L (98-107); Estimated GFR-MDRD 90
[2017-02-14] MEDS ORDERED: Sodium Chloride 0.9% 1,000 ML IV SCH ×2 (07:00→13:30)
[2017-02-14] MEDS: Hydrochlorothiazide 25 MG TAB PO SCH (08:35)
[2017-02-14] MEDS: Heparin 5,000 UNITS/ML VIAL SC SCH ×3 (08:35→22:06)
[2017-02-14] MEDS: Nicotine 21 MG PATCH TD SCH (11:52)
[2017-02-14] MEDS ORDERED: Nitroglycerin 100MG/250ML BOT 250 ML ONE (12:18)
[2017-02-14] MEDS ORDERED: Heparin 10,000 UNITS/1 ML VIAL ONE (12:18)
[2017-02-14] MEDS ORDERED: Fentanyl 100 MCG/2 ML VIAL ONE (12:52)
[2017-02-14] MEDS ORDERED: Midazolam HCl 2 mg/2 ml Vial ONE (12:52)
[2017-02-14] MEDS ORDERED: Clopidogrel Bisulfate 300 MG TAB ONE (13:25)
[2017-02-14] MEDS ORDERED: Nitroglycerin 0.4 MG TAB 1 EACH SL PRN (13:29)
[2017-02-14] MEDS ORDERED: Morphine 2 MG/ML SYRINGE SLOW IVP PRN (13:29)
[2017-02-14 14:58] VITALS: BMI 37.0
--- NOTE | 2017-02-14 16:09 | EKG ---
Test Reason : TIMED Blood Pressure : / mmHG Vent. Rate : 076 BPM Atrial Rate : 076 BPM P-R Int : 136 ms QRS Dur : 100 ms QT Int : 426 ms P-R-T Axes : 041 -24 170 degrees QTc Int : 479 ms Normal sinus rhythm Possible Left atrial enlargement Moderate voltage criteria for LVH, may be normal variant Marked ST abnormality, possible anterior subendocardial injury Abnormal ECG Confirmed by PACO ALEJO ([id number]) on 02/14/2017 4:09:41 PM Referred By: ROSA M Confirmed By:PACO ALEJO
--- NOTE | 2017-02-14 16:58 | EKG ---
Test Reason : POST STENT Blood Pressure : / mmHG Vent. Rate : 071 BPM Atrial Rate : 071 BPM P-R Int : 146 ms QRS Dur : 098 ms QT Int : 418 ms P-R-T Axes : 034 -23 174 degrees QTc Int : 454 ms Normal sinus rhythm Possible Left atrial enlargement Left ventricular hypertrophy with repolarization abnormality cannot R/O ischemia or evolving recent [place] Abnormal ECG When compared with ECG of 11-FEB-2017 14:11, (Unconfirmed) No significant change was found Confirmed by DR. Jessica SAINI ([id number]) on 02/14/2017 4:58:37 PM Referred By: DALTON Confirmed By:DR. Jessica SAINI
[2017-02-14] MEDS: Atorvastatin Calcium 40 MG TAB PO SCH (22:04)
[2017-02-15 06:31] LABS: #Basophils 0.1 thou/uL (0.0-0.2); #Eosinphils 0.1 thou/uL (0.0-0.7); #Lymphocytes 1.1 thou/uL (1.20-3.40); #Monocytes 0.4 thou/uL (0.11-0.59); #Neutrophils 2.2 thou/uL (1.40-6.50); %Basophils 1.4 % (0.0-1.0); %Eosinophils 3.1 % (0.0-10.0); %Lymphocytes 28.1 % (21.0-51.0); %Monocytes 9.5 % (0.0-10.0); Hematocrit 41.5 % (42.0-52.0); Mean Platelet Volume 8.8 fL (7.4-10.4); Red Blood Cell (RBC) Count 4.42 mill/uL (4.70-6.10); White Blood Cell (WBC) Count 3.8 thou/uL (4.8-10.8)
--- NOTE | 2017-02-15 06:34 | PDOC.FM ---
- Subjective Subjective: Patient doing well this morning with no complaints of pain. He denies chest pain , shortness of breath, and peripheral edema. - Objective MAR Reviewed: Yes Vital Signs & Weight: Vital Signs (12 hours) Temp Pulse Resp BP BP Pulse Ox 02/15/17 04:00 98.1 F 71 20 144/91 H 93 L 02/14/17 23:56 77 154/86 H 02/14/17 22:04 80 165/93 H 02/14/17 20:00 98.0 F 77 20 02/14/17 19:40 98.0 F 80 20 167/87 H Weight Weight 98.838 kg Most Recent Monitor Data Heart Rate from ECG 72 NIBP 164/120 NIBP BP-Mean 136 Respiration from ECG 14 SpO2 89 I&O: 02/13/17 02/14/17 02/15/17 06:59 06:59 06:59 Intake Total 480 1180 1540 Output Total 1750 2700 3860 Balance -1270 -1520 -2320 Result Diagrams: 02/15/17 05:55 02/15/17 05:55 <Carmen Alanis C - Last Filed: 02/15/17 07:54> - Objective Vital Signs & Weight: Vital Signs (12 hours) Temp Pulse Pulse Pulse Resp BP BP 02/15/17 11:43 69 72 143/86 H 161/87 H 02/15/17 08:15 98.0 F 71 14 02/15/17 08:10 71 02/15/17 04:00 98.1 F 71 20 BP BP Pulse Ox Pulse Ox Pulse Ox 02/15/17 11:43 95 99 02/15/17 08:15 164/92 H 02/15/17 08:10 02/15/17 04:00 144/91 H 93 L Weight Weight 98.838 kg Most Recent Monitor Data Heart Rate from ECG 72 NIBP 164/120 NIBP BP-Mean 136 Respiration from ECG 14 SpO2 89 I&O: 02/14/17 02/15/17 02/16/17 06:59 06:59 06:59 Intake Total 1180 1540 Output Total 2700 3860 Balance -1520 -2320 Result Diagrams: 02/15/17 05:55 02/15/17 05:55 <Steffen Chilel - Last Filed: 02/15/17 12:22> Phys Exam - Physical Examination Constitutional: NAD Respiratory: clear to auscultation bilateral Cardiovascular: RRR Musculoskeletal: no edema Neurological: moves all 4 limbs Psychiatric: normal affect, A&O x 3 Skin: no rash Deviation from normal: right radial cath site well healed; no swelling or bruising. <Carmen Alanis - Last Filed: 02/15/17 07:54> Dx/Plan (1) Coronary artery disease Code(s): I25.10 - ATHSCL HEART DISEASE OF [place] CORONARY ARTERY W/O ANG PCTRS Status: Acute Plan: s/p LHC and stent placement x 2 plavix added to patient's regimen. Continue ASA, Carvedilol, and atorvastatin. (2) Systolic CHF Code(s): I50.20 - UNSPECIFIED SYSTOLIC (CONGESTIVE) HEART FAILURE Status: Resolved Plan: EF shows improvement on left ventriculogram 50%. continue beta carla, lisinopril, for BP. (3) Hyperlipidemia Code(s): E78.5 - HYPERLIPIDEMIA, UNSPECIFIED Status: Chronic (4) Tobacco abuse Code(s): Z72.0 - TOBACCO USE Status: Chronic Plan: Continue TD nicotine. Counseled. (5) Alcohol abuse Code(s): F10.10 - ALCOHOL ABUSE, UNCOMPLICATED Status: Acute Plan: Extensive education provided. (6) Hypertensive emergency Code(s): I16.1 - HYPERTENSIVE EMERGENCY Status: Resolved - Plan Plan: Disposition: likely d/c today. <Carmen Alanis - Last Filed: 02/15/17 07:54> Attending Addendum - Attending Addendum I personally evaluated the patient and discussed the management with Dr. Alanis. I agree with the History, Examination, Assessment and Plan documented above with any addition or exceptions noted below. <Steffen Chilel - Last Filed: 02/15/17 12:22>
[2017-02-15 06:45] LABS: ALT (SGPT) 34 U/L (8-55); AST (SGOT) 23 U/L (5-34); Alkaline Phosphatase 69 U/L (40-150); Anion Gap 10 mmol/L (10-20); BUN (Urea Nitrogen) 14 mg/dL (8.4-25.7); Bilirubin, Total 0.4 mg/dL (0.2-1.2); Calc. Creatinine Clearance 137 mL/min (70-130); Carbon Dioxide 26 mmol/L (22-29); Chloride 103 mmol/L (98-107); Estimated GFR-MDRD Greater than 90; Globulin 2.9 g/dL (2.4-3.5); Protein, Total 6.6 g/dL (6.0-8.3)
[2017-02-15] MEDS: Aspirin 81 mg Enteric Coated Tablet PO SCH (08:10)
[2017-02-15] MEDS: Heparin 5,000 UNITS/ML VIAL SC SCH (08:10)
[2017-02-15] MEDS: Carvedilol 6.25 MG TAB PO SCH (08:10)
[2017-02-15] MEDS: Hydrochlorothiazide 25 MG TAB PO SCH (08:10)
[2017-02-15] MEDS: Amlodipine 10 MG TAB PO SCH (08:10)
[2017-02-15] MEDS: hydrALAZINE 25 MG TAB PO SCH (08:10)
[2017-02-15] MEDS: Lisinopril 20 MG TAB PO SCH (08:11)
[2017-02-15] MEDS ORDERED: Clopidogrel Bisulfate 75 MG TAB PO SCH (09:00)
[2017-02-15] MEDS: Nicotine 21 MG PATCH TD SCH (11:26)
--- NOTE | 2017-02-15 12:11 | EKG ---
Test Reason : Blood Pressure : / mmHG Vent. Rate : 070 BPM Atrial Rate : 070 BPM P-R Int : 144 ms QRS Dur : 098 ms QT Int : 422 ms P-R-T Axes : 043 -25 180 degrees QTc Int : 455 ms Normal sinus rhythm Possible Left atrial enlargement Left ventricular hypertrophy with repolarization abnormality upsloping anterior st segments probably part of LVH pattern cannot R/O acute ischemia Abnormal ECG When compared with ECG of 14-FEB-2017 13:49, No significant change was found Confirmed by DR. Jessica SAINI ([id number]) on 02/15/2017 12:10:52 PM Referred By: DALTON Confirmed By:DR. Jessica SAINI
[2017-02-15 12:50] VITALS: BP 144/86; TEMP 97.7
--- NOTE | 2017-02-16 11:54 | DIS-2 ---
DATE OF ADMISSION: 02/11/2017 DATE OF DISCHARGE: 02/15/2017 RESIDENT: Carmen Alanis M.D. - PGY2 ADMITTING ATTENDING: Ki Jordan M.D. DISCHARGE ATTENDING: Steffen Chilel M.D. CONSULTATIONS: 1. Jarrod Chaudhry M.D. 2. Refugio Rush M.D. PROCEDURES: 1. Chest x-ray that showed no evidence of acute cardiopulmonary process. 2. Nuclear medicine stress test that showed small volume inferior wall scar with global hypokinesis with ejection fraction of 29%. 3. Left heart catheterization with PTCA and bare metal stent placement that showed severe left circumflex disease, mild LAD disease, small nondominant right coronary artery. 4. Successful PCI to left circumflex with bare metal stent, left ventricular function of 50%. PRIMARY DIAGNOSIS: 1. Hypertensive emergency, resolved. 2. Coronary artery disease. 3. Heart failure with reduced ejection fraction, resolved. SECONDARY DIAGNOSES: 1. Hyperlipidemia. 2. Tobacco abuse. 3. Alcohol abuse. 4. Hypertension. 5. Demand Ischemia DISCHARGE MEDICATIONS: 1. Amlodipine 10 mg p.o. daily. 2. Aspirin 81 mg p.o. daily. 3. Atorvastatin 80 mg p.o. at bedtime. 4. Carvedilol 6.25 mg p.o. b.i.d. 5. Plavix 75 mg p.o. daily. 6. Hydrochlorothiazide 25 mg p.o. daily. 7. Nicoderm CQ 21 mg transdermally q.24 hours. 8. Lisinopril 40 mg p.o. daily. DISCONTINUED MEDICATIONS: Lasix 10 mg p.o. HISTORY OF PRESENT ILLNESS AND HOSPITAL COURSE: The patient is a 51-year-old male who came in with a chief complaint of shortness of breath and was found to have severely elevated blood pressures in the 200s/100s range and was placed on a Cardene drip. The patient was admitted to the ICU for treatment of hypertensive emergency. Cardiology was consulted and a stress test was performed with the above findings. This was followed up with a left heart catheterization with the above findings. Successful PTCA was performed with bare metal stent placement. Cardiology recommended dual antiplatelet therapy for at least 1 month and ideally up for a year. Initially there was discussion regarding LifeVest given the patient's earlier ejection fraction on stress test of 29%. However, left ventriculogram showed an EF of 50% and therefore LifeVest was no longer needed. Standard therapy for coronary artery disease was initiated including beta carla and high dose statin therapy. Prior to discharge, patient was completely asymptomatic and blood pressures were stable with the addition of multiple oral antihypertensive agents. Strict daily compliance was encouraged and the patient expressed understanding. Tobacco cessation and alcohol cessation were also will strongly encouraged as well. The patient was discharged in stable condition. Laboratory values of note, the patient's cardiac enzymes were indeterminately elevated related to demand ischemia were down trending. Also of note, the patient's fasting lipid panel revealed an LDL of 214 and therefore high dose statin therapy was initiated and for coronary artery disease as well. DISPOSITION: Stable. DISCHARGE INSTRUCTIONS: 1. Location: Home. 2. Diet: Heart healthy. 3. Activity: Ad yunior. 4. Followup: Júnior Velazco on . Jarrod Chaudhry M.D. on 2016. ALON
== END 2017-02-15 12:55 | disposition home or self-care (01) | DRG 248 ==
LOC: ERS 09:41 → CCU 10:21 → 2NO 02-12 12:26
PROVIDERS: ADMIT Internal Medicine; ATTEND Internal Medicine
PROC: 4A023N7 Measurement of Cardiac Sampling and Pressure, Left Heart, Percutaneous Approach (ICD-10-PCS; principal; 2017-02-14)
PROC: 02703DZ Dilation of Coronary Artery, One Artery with Intraluminal Device, Percutaneous Approach (ICD-10-PCS; 2017-02-14)
PROC: B2111ZZ Fluoroscopy of Multiple Coronary Arteries using Low Osmolar Contrast (ICD-10-PCS; 2017-02-14)
PROC: B2151ZZ Fluoroscopy of Left Heart using Low Osmolar Contrast (ICD-10-PCS; 2017-02-14)
DX: I16.1 Hypertensive emergency (principal); I50.21 Acute systolic (congestive) heart failure; E78.5 Hyperlipidemia, unspecified; F17.210 Nicotine dependence, cigarettes, uncomplicated; F10.10 Alcohol abuse, uncomplicated; Z91.14 Patient's other noncompliance with medication regimen; I25.10 Atherosclerotic heart disease of native coronary artery without angina pectoris; Z95.5 Presence of coronary angioplasty implant and graft; I11.0 Hypertensive heart disease with heart failure
CPT/HCPCS: 36415; 71010; 78452; 80048; 80053; 80061; 82553; 83036; 83880; 84443; 84484; 85025; 85347; 92928; 93005; 93010; 93017; 93306; 93458; 93798; 96365; 99152; 99153; A4216; A9500; C1769; C1876; J0360; J1644; J1940; J2250; J2785; J3010; J7050

== ENCOUNTER 2018-05-15 09:56 | Emergency (ER) | payer OTHER, SELFPAY ==
[2018-05-15] MEDS ORDERED: Furosemide 40 MG/4 ML VIAL ONE (11:24)
[2018-05-15 11:27] LABS: CKMB 5.3 ng/mL (0-6.6)
== END 2018-05-15 13:48 | disposition home or self-care (01) ==
LOC: ERS 09:56
DX: R60.0 Localized edema (principal); E78.5 Hyperlipidemia, unspecified; I10 Essential (primary) hypertension; J44.9 Chronic obstructive pulmonary disease, unspecified; I25.2 Old myocardial infarction; I25.10 Atherosclerotic heart disease of native coronary artery without angina pectoris; M10.9 Gout, unspecified; F17.210 Nicotine dependence, cigarettes, uncomplicated; Z71.6 Tobacco abuse counseling; Z79.82 Long term (current) use of aspirin; Z79.899 Other long term (current) drug therapy
CPT/HCPCS: 36415; 82553; 84484; 93005; 96374; 99406; J1940